=== PATIENT | male | born 1975 | race Caucasian/White ===

== ENCOUNTER 2016-07-17 10:49 | Day surgery (SDC) | payer BC ==
--- NOTE | ~2016-07-17 | OP ---
Record Of Operation [facility] [address] [place]. [address] NAME: ZABRINA LEAL : 71 STATUS : [facility]#: [id number] AGE: 40 ADM/REG DATE : 07/17/16 MR#: [id number] REPORT SERV DATE: 07/19/16 DICTATED BY: HENNY GOYAL DATE: 07/19/16 REPORT STATUS : Draft TRANSCRIBED BY: KOJO DATE: 07/19/16 DATE OF PROCEDURE: 07/17/2016 PREOPERATIVE DIAGNOSIS: Left index complex wound. POSTOPERATIVE DIAGNOSIS: Left index complex wound. PROCEDURE: Thenar flap reconstruction, distal index finger. INDICATION AND FINDINGS OF THE PROCEDURE: This 40-year-old male presents with an avulsion injury to the left index finger that is approximately 2 cm in length and about 1.5 cm in width. Exposes the underlying neurovascular bundle distally. He is appropriate for the above-described operative intervention. DETAILS OF THE PROCEDURE: The patient was brought to the operating room, and after adequate sedation was achieved, he was prepped and draped in the usual sterile fashion for the above- described procedure. and cutaneous block was then obtained with lidocaine plain, and the left upper extremity was exsanguinated with an Esmarch bandage and tourniquet raised to 250 mmHg. A distally-based thenar flap was then planned and this was incised and elevated protecting the underlying neurovascular bundles. The donor site was then closed with interrupted 4-0 nylon. The index, which had been debrided and scrubbed thoroughly, was then presented for inset of the flap, the flap was inset with interrupted 4- 0 nylon. With this completed, then the tourniquet was released, hemostasis was checked where necessary, and he was then dressed with dry dressing and a protective dorsal blocking splint. He was subsequently remanded to the recovery room in stable condition. All sponge and needle counts were correct. DIEGO/KOJO Henny Goyal M.D. / [id number] CC: Henny Goyal M.D.
[~2016-07-17 10:49] MED LIST: ANTI DEPRESSANT MED PO; K500 PO; PERCOCET 7.5/321 TAB PO
[2016-07-17 11:55] LABS: BASOPHILS 0.7 %; BASOPHILS ABSOLUTE 0.05 10/3/uL (0.0-0.16); EOSINOPHILS 2.6 %; EOSINOPHILS ABSOLUTE 0.18 10/3/uL (0.0-0.53); HEMOGLOBIN 17.7 g/dL (13.6-17.8); IMMATURE GRANULOCYTES 0.1 %; IMMATURE GRANULOCYTES ABSOLUTE 0.01 10/3/uL (0.0-0.11); LYMPHOCYTES 25.9 %; MANUAL DIFF NO %; MEAN CORPUS HGB CONC 34.7 g/dL (32.0-36.0); MEAN CORPUSCULAR HEMOGLOB 31.8 pg (26.0-34.0); MEAN CORPUSCULAR VOLUME 91.6 fL (80-100); MEAN PLATELET VOLUME 10.4 fL (9.2-13.0); MONOCYTES 10.4 %; MONOCYTES ABSOLUTE 0.72 10/3/uL (0.21-1.20); NEUTROPHILS 60.3 %; NEUTROPHILS ABSOLUTE 4.19 10/3/uL (2.02-8.40); PLATELET COUNT 254 10/3/uL (150-400); RBC DISTRIBUTION WIDTH 12.8 % (12.0-16.0); RED CELL COUNT 5.57 10/6/uL (4.7-6.1)
[2016-07-17 12:02] LABS: PARTIAL THROMBO TIME 29.2 SEC (22.5-37.2); PROTIME (NOT ORD) 12.6 SEC (12.0-14.5)
[2016-07-17 12:16] LABS: PFA (COL/EPI) 97 SEC (72-180)
== END 2016-07-17 15:56 | disposition home or self-care (01) ==
LOC: SDC 10:49
PROVIDERS: Surgery Surgery of the Hand
PROC: 0HXGXZZ Transfer Left Hand Skin, External Approach (ICD-10-PCS; principal; 2016-07-17 12:30)
DX: S61.201A Unspecified open wound of left index finger without damage to nail, initial encounter (principal); E78.5 Hyperlipidemia, unspecified; E78.00 Pure hypercholesterolemia, unspecified; F41.9 Anxiety disorder, unspecified; F32.9 Major depressive disorder, single episode, unspecified; F17.210 Nicotine dependence, cigarettes, uncomplicated; Z90.89 Acquired absence of other organs; Z98.890 Other specified postprocedural states
CPT/HCPCS: 85025; 85576; 85610; 85730; A9270-GY; J0690; J2250; J2405; J3010